=== PATIENT | female | born 1980 | race Caucasian/White ===

== ENCOUNTER 2017-03-18 07:52 | Day surgery (SDC) | payer OTHER ==
[~2017-03-18 07:52] MED LIST: RINGERS SOLUTION,LACTATED 1,000 ML IV PRN
[2017-03-18 08:23] LABS: Hemoglobin 12.9 gm/dL (12.5-16.0); Mean Cell Volume 90.5 fl (78-100); Mean Corpuscular Hemoglobin 29.9 pg (27-31); Mean Corpuscular Hgb Conc 33.1 g/dl (32-36); Mean Platelet Volume 9.9 fl (6.0-9.5); Neutrophil % 66.8 % (42-75.0); Platelet Count 237 K/mm3 (150-450); Red Blood Count 4.31 M/mm3 (4.2-5.4); Red Cell Distribution Width 13.6 % (11.5-14.0); White Blood Count 5.9 K/mm3 (4.0-10.5)
[2017-03-18] MEDS ORDERED: RINGERS SOLUTION,LACTATED 1,000 ML IV ONE (08:25)
[2017-03-18] MEDS ORDERED: IBUPROFEN 600 MG TABLET PO PRN (09:14)
[2017-03-18] MEDS ORDERED: oxyCODONE HCL/ACETAMINOPHEN 1 TAB TABLET PO PRN (09:14)
--- NOTE | 2017-03-18 09:17 | OR ---
Operative Report - Dictated Report Narrative: Operative Report 03/18/17 Hysteroscopy Dilatation and Curettage Preoperative Diagnosis: Menorrhagia Postoperative Diagnosis: Menorrhagia Procedure: Hysteroscopy Dilatation and Curettage Surgeon: Estefany Gordon M.D. Anesthesia: Curtis Lopez RIGGING UP MAN, IV sedation Findings: Uterine sound was 9.5 cm. There is no evidence of submucosal fibroid or endometrial polyp. Patient is not a good candidate for vaginal hysterectomy. The uterus has little descent and is anteflexed. Fluids: 500 ml EBL: Minimal Drains: None Complications: None Condition: Stable Pathology: Endometrial curettings Procedure: The patient was taken to the operating room with IV fluids running. She was placed in the dorsal lithotomy position after anesthesia was induced. A bivalve speculum was placed in the vagina. The anterior lip of the cervix was grasped with a single-tooth tenaculum. Uterine sound was passed into the endometrial cavity with ease. Uterine sound was 9.5 cm. The cervix was dilated with Shabbir dilators. The hysteroscope was introduced into the endometrial cavity. The cavity was distended with normal saline. Ostia were visualized bilaterally. There was no evidence of submucosal fibroid or endometrial polyp. The hysteroscope was removed. The cavity was sharply curetted without difficulty. The hysteroscope was once again introduced into the cavity. The cavity was completely curetted. The hysteroscope was removed. The single-tooth tenaculum was removed. Sites were hemostatic. The speculum was removed from the vagina. Sponge counts were correct 2. The patient tolerated the procedure well.
[2017-03-18 10:27] VITALS: BP 130/88
== END 2017-03-18 07:53 | disposition home or self-care (01) ==
LOC: AMB 07:52
PROVIDERS: ATTEND Obstetrics & Gynecology
PROC: 0UDB8ZX Extraction of Endometrium, Via Natural or Artificial Opening Endoscopic, Diagnostic (ICD-10-PCS; principal; 2017-03-18 09:00)
DX: N92.0 Excessive and frequent menstruation with regular cycle (principal); E11.9 Type 2 diabetes mellitus without complications; I10 Essential (primary) hypertension; E78.5 Hyperlipidemia, unspecified; K21.9 Gastro-esophageal reflux disease without esophagitis; E03.9 Hypothyroidism, unspecified; E66.01 Morbid (severe) obesity due to excess calories; Z68.41 Body mass index [BMI] 40.0-44.9, adult

== ENCOUNTER 2017-05-29 07:07 | Day surgery (SDC) | payer OTHER ==
[~2017-05-29 07:07] MED LIST changes: -RINGERS SOLUTION,LACTATED 1,000 ML IV PRN; +ceFAZolin SODIUM 3 GM in DEXTROSE 5 % IN WATER 100 ML IV PRN
[2017-05-29 07:30] LABS: Hematocrit 38.8 % (37.0-47.0); Hemoglobin 12.7 gm/dL (12.5-16.0); Mean Cell Volume 89.4 fl (78-100); Mean Corpuscular Hemoglobin 29.3 pg (27-31); Mean Corpuscular Hgb Conc 32.7 g/dl (32-36); Mean Platelet Volume 9.9 fl (6.0-9.5); Neutrophil # 4.7 K/mm3 (1.3-6.0); Neutrophil % 66.8 % (42-75.0); Platelet Count 254 K/mm3 (150-450); Red Blood Count 4.34 M/mm3 (4.2-5.4); Red Cell Distribution Width 13.2 % (11.5-14.0); White Blood Count 7.1 K/mm3 (4.0-10.5)
[2017-05-29 07:48] LABS: Albumin * 3.5 gm/dl (3.4-5.0); Anion Gap 15.8 mmol/L (6.8-13.8); Bilirubin, Total 0.3 mg/dL (0.0-1.1); Ca. Corrected For Albumin 9.3 mg/dL (8.4-10.2); Calcium * 9.2 mg/dL (7.9-10.9); Carbon Dioxide 24.3 mmol/L (24-32.6); Potassium 4.1 mmol/L (3.4-4.6); Total Protein 7.5 gm/dL (6.2-8.2)
[2017-05-29] MEDS ORDERED: RINGER'S SOLUTION,LACTATED 1,000 ML IV ONE ×3 (08:05→10:45)
[2017-05-29] MEDS ORDERED: BUPIVACAINE HCL 50 ML VIAL IJ ONE (11:35)
[2017-05-29] MEDS ORDERED: RINGER'S SOLUTION,LACTATED 1,000 ML IV PRN (12:05)
--- NOTE | 2017-05-29 12:07 | OR ---
Operative Report - Dictated Report Narrative: DATE OF PROCEDURE: 05/29/2017 PROCEDURE: 1. Total laparoscopic hysterectomy, bilateral salpingectomy 2. Lysis of adhesion (60 min) 3. Diagnostic cystoscopy. ANESTHESIA: General, endotracheal intubation. PREOPERATIVE DIAGNOSES: 1. Menorrhagia, failed hormonal therapy 2. Morbid obesity, BMI 40.9 3. Prior section x 2 4. Diabetes, type 2 5. Chronic hypertension POSTOPERATIVE DIAGNOSES: 1. Menorrhagia, failed hormonal therapy 2. Morbid obesity, BMI 40.9 3. Prior section x 2 4. Diabetes, type 2 5. Chronic hypertension SURGEON: Dianne Salgado M.D. [employer]IT[employer]ING MACHINERY: Abby Perez FINDINGS: 1. Large amount of omentum adhesions to the anterior abdominal wall, partially obstructing view to the pelvis and dense adhesions in the lower uterine segment. 2. Evidence of bilateral tubal ligations. 3. Normal size uterus, somewhat bulky in the posterior aspect and normal bilateral ovaries and tubes 4. On cystoscopy, the bladder appeared intact and bilateral ureteral jets were seen. SPECIMENS: Uterus, cervix, and both tubes DRAINS: None. URINE OUTPUT: 100 ml BLOOD LOSS: 50 ml INTRAOPARATIVE IV FLUIDS: 2600 ml COMPLICATIONS: None. DESCRIPTION OF PROCEDURE: The patient consented to the operation and was taken to the operating room. She was placed on the operating table supine. SCDs were placed on her lower extremities. General anesthesia was induced. Three grams of ancef was given by IV prior to anesthesia induction. She was repositioned in the dorsal lithotomy position. Her right arm was tucked at her side under the drape. Exam under anesthesia revealed a cervix somewhat flush with vaginal wall and the cervical os was close to the posterior vagina due to history of LEEP procedure. Uterus was not enlarged and there was no adnexal mass. The abdomen was prepped with Chloraprep and the vagina was prepped with Betadine. She was draped in the usual sterile fashion. A time-out procedure was conducted to confirm the correct patient for the correct procedure. After time- out, a Garcia catheter was placed into the bladder. A bivalve speculum was placed into the vagina. The vagina and the cervix were prepped with Betadine one more time. The anterior cervix was grasped with a single-tooth tenaculum. The uterus was sounded to 9 cm. A medium size VCare uterine manipulator was inserted into the uterine cavity. The balloon was inflated with 6 cc of air. The single-tooth tenaculum was removed. Llewellyn speculum was removed. The upper VCare cup was advanced into the vagina to hug the cervix. The lower VCare cup was advanced into the vagina to align with the upper VCare cup and to provide pneumoperitoneum for the procedure. The lower VCare cup was fastened to the uterine manipulator. The surgeon then changed gloves and attention was paid to the abdomen. A small vertical incision was made at the upper edge of the umbilicus. A Veress needle was inserted into the abdominal cavity. Intraabdominal placement was confirmed with a saline drop test and with low entry pressure of 4 mmHg. The abdomen was insufflated with CO2 gas to an intraabdominal pressure of 15 mmHg. The Veress needle was removed. A 5 mm trocar with the laparoscope was inserted through the umbilicus incision into the abdomen. Intraabdominal placement was confirmed with the laparoscope. Survey of the entry site revealed no trauma to the underlying structures. The patient was then placed in Trendelenburg position. Three 5 mm trocars were placed in the lower abdomen. A right lower quadrant trocar (5 mm) and a right lower quadrant trocars (5 mm) were placed superior and medial to the anterior superior iliac spine to avoid vessels and nerves. A suprapubic trocar (5 mm) was placed in the midline. All trocars were placed under the direct visualization of the laparoscope. Survey of the abdomen and pelvis revealed the findings noted above. The omentum adhesions to the anterior abdominal wall were taken down with the Thunderbeat. Attention was now turned to the left side. The left fallopian tube was elevated. The mesosalpinx was divided with the Thunderbeat. The division was carried to the cornual region. The uteroovarian ligament was divided with the Thunderbeat and the division was carried on the broad ligament through the round ligament towards the lower uterine segment. The course of the left ureter was not identified, but believed to be away from the surgical field. The broad ligament incision was into the anterior leaf and the posterior leaf. Anterior leaf of the broad ligament was dissected towards the bladder uterine reflection. The posterior leaf of the broad ligament was dissected towards the uterosacral ligament. Dense adhesions were encountered in the lower uterine segment. These were dissected carefully. The left uterine vessel was isolated and divided with the Thunderbeat. The lower uterine segment was dissected to free the bladder down. The cardinal ligament complex was divided with the Thunderbeat to the level of vaginal cervical junction. Attention was now turned to the right side. The right fallopian tube was elevated. The mesosalpinx was divided with the Thunderbeat. The division was carried to the cornual region. The uteroovarian ligament was divided with the Thunderbeat and the division was carried on the broad ligament through the round ligament towards the lower uterine segment. The course of the right ureter was identified and protected. The broad ligament incision was into the anterior leaf and the posterior leaf. The anterior leaf of the broad ligament was dissected towards the bladder uterine reflection and to meet with the opposite dissection point at the midline. Again, dense adhesion was lysed carefully here. The posterior leaf of the broad ligament was dissected towards the uterosacral ligament. The right uterine vessel was isolated, and divided with the Thunderbeat. The cardinal ligament complex was divided with the Thunderbeat to the level of vaginal cervical junction. The vaginal fornix was seen well through the VCare cup. The Thunderbeat was used to make an anterior colpotomy over the VCare cup groove. Entry into the vagina was without complications. A circumferential incision was made along the vaginal cervical junction using the VCare cup groove as a guide. Bilateral uterosacral ligament was divided. The cervix was completely divided from the vagina. The surgeon moved to the vaginal area to retrieve the specimen. The VCare uterine manipulator was removed. The cervix was grasped with a single tooth tenaculum. The uterus, cervix and both tubes were removed through the vagina. The right fallopian tube was got detached during the removal process, but was removed through the vagina and placed with the specimen together. The vagina was packed with 2 moist laps to keep the pneumoperitoneum. The surgeon then changed gloves and attention was paid back to the abdomen. The pelvis was thoroughly irrigated with saline. The vaginal opening was closed transversely with 0 Vicryl Endoknot suture in an interrupted fashion using intracorporeal suturing technique and extracorporeal knot tying. The uterosacral ligament was sutured to the vaginal cuff corner for cuff support. The pelvis was irrigated with saline. Extra fluid was suctioned out from the abdomen and pelvis. There was hemostasis in all vessel pedicles. The patient was taken out of Trendelenburg. Three lower abdominal trocars were removed. The abdomen was deflated. The trocar at the umbilicus was removed with the laparoscope. The skin incision was closed with 4-0 Monocryl suture and 2 to 3 cc of 0.25% Marcaine was infiltrated around each incision for post op pain management. The incisions were covered with Steri-Strips. A diagnostic cystoscopy was performed. Vaginal packing was removed and the Garcia catheter was removed. A 70-degree cystoscope was introduced through the urethra into the bladder. Exam of the bladder revealed the bladder was intact. There were urine jets coming out from the left as well as the right ureteral orifice, confirming the integrity of ureters. The cystoscope was removed. The Garcia catheter was not replaced. The patient tolerated the procedure well. All counts were correct and the patient was taken to the recovery room in stable condition. Dianne Salgado MD
[2017-05-29] MEDS ORDERED: INSULIN REGULAR, HUMAN 100 UNITS/ML VIAL SC SCH (12:30)
[2017-05-29] MEDS ORDERED: IBUPROFEN 800 MG TABLET PO ONE (13:00)
[2017-05-29] MEDS ORDERED: oxyCODONE HCL/ACETAMINOPHEN 1 TAB TABLET PO ONE (13:00)
[2017-05-29] MEDS: RINGER'S SOLUTION,LACTATED 1,000 ML IV PRN ×2 (13:15→16:10)
[2017-05-29] MEDS ORDERED: BLOOD SUGAR DIAGNOSTIC 1 EACH STRIP MC SCH (13:30)
[2017-05-29] MEDS: INSULIN LISPRO 100 UNITS/ML VIAL SC PRN ×2 (14:18→14:19)
[2017-05-29] MEDS: INSULIN DETEMIR 100 UNITS/ML VIAL SC ONE ×2 (14:18→14:24)
[2017-05-29] MEDS ORDERED: oxyCODONE HCL/ACETAMINOPHEN 1 TAB TABLET ONE (14:28)
[2017-05-29] MEDS ORDERED: IBUPROFEN 800 MG TABLET ONE (14:28)
[2017-05-29 16:16] VITALS: BP 133/80
--- NOTE | 2017-05-29 16:38 | PN ---
Subjective - Date and Time Seen Date: 05/29/17 Subjective Narrative: post op check patient seen and evaluated. doing well over all except high blood sugar. ambulating well. pain controlled. voided. tolerated a diet. Blood sugar were elevated today and were as follow: pre-op 208 intra-op 214 (~11:00) post op 263 (12:20 in PACU), received 4 u regular insulin subQ post op 310 (13:30 in recovery), received 4 u lispro and 20 u levemir post op 225 (16:10 at discharge). blood sugar management post op had consulted Dr. Beach. Exam: general: no distress. abdomen: non-distended, soft, incisions dry and clean with steri-strip intact. ext: no calf tenderness A: 1. post op from [facility] [place], [place], Lysis of adhesion and cystoscopy, stable 2. type 2 DM and elevated blood sugar post op and managed with insulin as above. Plan: will discharge home now, given stable post op. patient to continue medications including levemir at HS per Dr. Beach. hypoglycemia precautions given to patient. Patient has glucose tablets at home. Patient to call if bedtime glucose is low prior to giving herself levemir. Dianne Salgado MD Objective - Vitals Vitals: Last Vital Signs Temp 36.0 C L 05/29/17 14:05 Pulse 110 H 05/29/17 16:10 Resp 18 05/29/17 16:10 BP 133/80 05/29/17 16:10 Pulse Ox 94 05/29/17 16:10 - Abnormal Lab Findings Abnormal Lab Findings: Abnormal Lab Results 05/29/17 05/29/17 Range/Units 07:20 07:20 MPV 9.9 H (6.0-9.5) fl Anion Gap 15.8 H (6.8-13.8) mmol/L Random Glucose 210 H (70-110) mg/dL
== END 2017-05-29 07:08 | disposition home or self-care (01) ==
LOC: AMB 07:07
PROVIDERS: ATTEND Obstetrics & Gynecology
PROC: 0UTC4ZZ Resection of Cervix, Percutaneous Endoscopic Approach (ICD-10-PCS; 2017-05-29)
PROC: 0UT74ZZ Resection of Bilateral Fallopian Tubes, Percutaneous Endoscopic Approach (ICD-10-PCS; 2017-05-29)
PROC: 0UT94ZZ Resection of Uterus, Percutaneous Endoscopic Approach (ICD-10-PCS; principal; 2017-05-29 08:00)
DX: N83.8 Other noninflammatory disorders of ovary, fallopian tube and broad ligament (principal); N88.8 Other specified noninflammatory disorders of cervix uteri; N92.0 Excessive and frequent menstruation with regular cycle; I10 Essential (primary) hypertension; E11.9 Type 2 diabetes mellitus without complications; E78.5 Hyperlipidemia, unspecified; K21.9 Gastro-esophageal reflux disease without esophagitis; E03.9 Hypothyroidism, unspecified; E66.01 Morbid (severe) obesity due to excess calories; Z68.41 Body mass index [BMI] 40.0-44.9, adult

== ENCOUNTER 2017-10-16 06:59 | Day surgery (SDC) | payer BC, MEDICAID ==
[2017-10-16] MEDS: ceFAZolin SODIUM 1 GM VIAL IV PRN (08:00)
[2017-10-16] MEDS: BUPIVACAINE HCL 50 ML VIAL IJ ONE (08:10)
--- NOTE | 2017-10-16 08:45 | OR ---
Operative Report - Dictated Report Narrative: Date: 10/16/2017 Physician: Abner Dawkins M.D. Occupational Therapist Home Based: Jah Royal PA-C Preoperative diagnosis: Left carpal tunnel syndrome Postoperative diagnosis: Left carpal tunnel syndrome Procedure: Left open carpal tunnel release Anesthesia: MAC Plus local Complications: None Estimated blood loss: Minimal Tourniquet time: 10 Minutes at 250 mmHg Specimens: None Retained implants: None Drains: None Indications: Lorenza is a 37 year-old female who has been followed in my clinic with complaints of carpal tunnel syndrome. Physical exam as well as diagnostic testing showed compression at the wrist consistent with carpal tunnel syndrome. Conservative measures have failed including but not limited to activity modification, medications, and splinting. The risks, benefits, and alternatives were discussed in clinic. The risks being bleeding, infection, nerve, tendon, blood vessel injury, persistent pain, wound competitions, weakness, palm pain, need for additional procedures, and persistent symptoms. Consent was obtained in the clinic. Procedure: After marking the correct extremity in the preoperative holding area, a timeout was performed in the operating room. IV antibiotics consisting of 2 g of Ancef were administered prior to the procedure. The left upper extremity was then prepped and draped in usual sterile fashion. A sterile tourniquet was applied to the operative upper arm. The arm was exsanguinated and the tourniquet was inflated to 250 mmHg. We turned our attention to the wrist. 0.5% Marcaine without epinephrine was infused into the projected incision site. Using Loupe magnification, a longitudinal incision was made in line with the longitudinal hypothenar crease, or approximately in line with the ring finger and palmaris longus, from just distal to the wrist flexion crease and extending approximately 2.5 cm distally. Blunt dissection and hemostasis with bipolar cautery was carried out throught the subcutaneous tissue and palmar fascia down to the level of the transverse carpal ligament. Ragnel retractors were used to retract the surrounding soft tissue and provide good visualization of the transverse carpal ligament. The transverse carpal ligament was then sharply incised longitudinally with a 15-blade scalpel. A Valhalla elevator was then slid underneath the transverse carpal ligament distally, protecting the median nerve , and the remaining distal portion of the transverse carpal ligament was sharply divided. This was then repeated proximally to divide the remaining proximal portion. Tenotomy scissors were used to divide any remaining transverse carpal ligament and palmar fascia distally being careful to avoid the superficial palmar arch. The distal forearm fascia was released ensuring that the median nerve was completely decompressed utilizing tenotomy scissors. The median nerve was then carefully inspected. Once it was felt that all the tissues overlying the median nerve were completely released, the wounds were thoroughly irrigated and the tourniquet was released. Hemostasis was achieved using direct pressure and bipolar electrocautery. Additional 0.5% marcaine was infused into the skin edges for pain control. Once bleeding was controlled, the wound was closed with interrupted 4-0 nylon and dressing with xeroform, 4x4s , soft roll, and a short dorsal plaster splint. All sponge and sharp counts were correct at the end of the case. The patient was transferred to recovery in stable condition.
[2017-10-16 09:50] VITALS: BP 145/96
[2017-10-16] MEDS: RINGER'S SOLUTION,LACTATED 1,000 ML IV PRN (09:55)
== END 2017-10-16 07:00 | disposition home or self-care (01) ==
LOC: AMB 06:59
PROVIDERS: ATTEND Orthopaedic Surgery
PROC: 01N50ZZ Release Median Nerve, Open Approach (ICD-10-PCS; principal; 2017-10-16)
DX: G56.02 Carpal tunnel syndrome, left upper limb (principal); E11.9 Type 2 diabetes mellitus without complications; I10 Essential (primary) hypertension; K21.9 Gastro-esophageal reflux disease without esophagitis; E78.5 Hyperlipidemia, unspecified; E03.9 Hypothyroidism, unspecified; E66.01 Morbid (severe) obesity due to excess calories; Z68.41 Body mass index [BMI] 40.0-44.9, adult